=== PATIENT | male | born 2000 | race Two or more races ===

== ENCOUNTER 2024-08-15 21:28 | Emergency (ER) | payer OTHER ==
[~2024-08-15] VITALS: Ht 170.2 cm; Wt 74.8 kg
[2024-08-15] MEDS ORDERED: KETOROLAC TROMETHAMINE 15 MG/ML VIAL ONE ×3 (21:45→21:49)
[2024-08-15] MEDS: KETOROLAC TROMETHAMINE 15 MG/ML VIAL IV ONE (22:00)
[2024-08-15] MEDS ORDERED: KETOROLAC TROMETHAMINE 15 MG/ML VIAL IM ONE (22:00)
[2024-08-15] MEDS ORDERED: LIDO30AD10 TP (22:01)
[2024-08-15] MEDS ORDERED: KETO10TA2 PO (22:01)
[2024-08-15] MEDS ORDERED: ACET-2030 PO (22:01)
[2024-08-15] MEDS ORDERED: CYCL5TAB PO (22:01)
[2024-08-15 22:37] VITALS: BP 124/73; TEMP 98.2; O2SAT 98
== END 2024-08-15 22:37 | disposition home or self-care (01) ==
LOC: ER 21:31
DX: S20.219A Contusion of unspecified front wall of thorax, initial encounter (principal); S00.432A Contusion of left ear, initial encounter; M25.561 Pain in right knee; M25.562 Pain in left knee; V43.52XA Car driver injured in collision with other type car in traffic accident, initial encounter; Y93.89 Activity, other specified; Y92.488 Other paved roadways as the place of occurrence of the external cause; Y99.8 Other external cause status
CPT/HCPCS: 99284; 96374; 71045; 73564 ×2; J1885 ×3